=== PATIENT | male | born 1990 | race Caucasian/White ===

== ENCOUNTER 2023-05-25 08:33 | Emergency (ER) | payer OTHER ==
[~2023-05-25] VITALS: Ht 167.6 cm; Wt 93.0 kg
[2023-05-25] MEDS ORDERED: ACET-683 PO (09:30)
[2023-05-25] MEDS: ACETAMINOPHEN TAB 650MG DOSE (2X325MG) PO ONE (11:40)
[2023-05-25 12:22] VITALS: BP 125/72; TEMP 97.8; O2SAT 99
== END 2023-05-25 12:25 | disposition home or self-care (01) ==
LOC: M ED 10:18
DX: R50.9 Fever, unspecified (principal); B97.4 Respiratory syncytial virus as the cause of diseases classified elsewhere; F17.200 Nicotine dependence, unspecified, uncomplicated